=== PATIENT | female | born 2000 | race Caucasian/White ===

== ENCOUNTER 2021-12-26 16:56 | Emergency (ER) | payer OTHER | END 2021-12-26 19:15 | disposition home or self-care (01) | LOC: CSHERS 16:56 | DX: O20.0 Threatened abortion (principal); Z3A.01 Less than 8 weeks gestation of pregnancy ==

== ENCOUNTER 2022-06-29 23:19 | Day surgery (SDC) | payer OTHER ==
[2022-06-29 23:59] VITALS: BMI 53.7
== END 2022-06-30 01:05 | disposition home or self-care (01) ==
LOC: CSHLD/OP 23:19
PROVIDERS: ATTEND Obstetrics & Gynecology
DX: O60.03 Preterm labor without delivery, third trimester (principal); O99.891 Other specified diseases and conditions complicating pregnancy; M79.18 Myalgia, other site; N89.8 Other specified noninflammatory disorders of vagina; Z3A.34 34 weeks gestation of pregnancy
CPT/HCPCS: 99282

== ENCOUNTER 2022-07-18 14:09 | Day surgery (SDC) | payer OTHER ==
[2022-07-18 15:19] LABS: Fetal Membranes Rupture No Membranes Rupture (No Rupture)
== END 2022-07-18 16:20 | disposition home or self-care (01) ==
LOC: CSHLD/OP 14:09
PROVIDERS: ATTEND Obstetrics & Gynecology
DX: O23.593 Infection of other part of genital tract in pregnancy, third trimester (principal); N89.8 Other specified noninflammatory disorders of vagina; Z3A.36 36 weeks gestation of pregnancy; Z79.899 Other long term (current) drug therapy
CPT/HCPCS: 84112; 87480; 87491; 87510; 87591; 87660

== ENCOUNTER 2022-07-28 13:39 | Inpatient (IN) | payer OTHER ==
[~2022-07-28 13:39] MED LIST: Bupivacaine PF 0.5% 30 ML VIAL ONE; Lidocaine 2% PF 5 ML VIAL ONE
[2022-07-28] MEDS ORDERED: hydrALAZINE 20 MG/ML VIAL SLOW IVP PRN ×2 (14:16→15:53)
[2022-07-28] MEDS ORDERED: Lactated Ringer's 1,000 ML IV SCH (14:30)
[2022-07-28] MEDS ORDERED: Misoprostol 200 MCG TAB PR PRN (15:53)
[2022-07-28] MEDS ORDERED: Promethazine HCl 25 MG/ML VIAL IM PRN (15:53)
[2022-07-28] MEDS ORDERED: Docusate 100 MG CAP PO PRN (15:53)
[2022-07-28] MEDS ORDERED: Acetaminophen 500 MG TAB PO PRN (15:53)
[2022-07-28] MEDS ORDERED: Lidocaine 1% (PF) 30 ML VIAL SC PRN (15:53)
[2022-07-28] MEDS ORDERED: Carboprost 250 MCG/ML AMP IM PRN (15:53)
[2022-07-28] MEDS ORDERED: Methylergonovine 0.2 MG/ML VIAL IM PRN (15:53)
[2022-07-28] MEDS ORDERED: Diphenoxylate HCl/Atropine Tablet PO PRN (15:53)
[2022-07-28] MEDS ORDERED: Ondansetron PF 4 MG/2 ML Vial IVP PRN (15:53)
[2022-07-28 15:54] LABS: SARS-CoV-2 NAA Rapid Test Not Detected (NotDetected)
[2022-07-28] MEDS ORDERED: Penicillin G Potassium 5 MILL.UNITS in Sodium Chloride 0.9% 100 ML IVPB SCH (16:00)
[2022-07-28] MEDS ORDERED: NS w/ Oxytocin 30 units 500 ML IV SCH ×2 (16:00)
[2022-07-28 16:56] VITALS: BMI 53.3
[2022-07-28 17:34] LABS: Hemoglobin 8.7 g/dL (12.0-15.5); Mean Corpuscular HGB CONC 31.5 g/dL (32.0-36.0); Mean Corpuscular Hemoglobin 20.8 pg (27.0-33.0); Mean Corpuscular Volume 65.9 fl (81.6-98.3); Mean Platelet Volume 10.9 fl (7.4-10.4); Platelet Count 268 10x3/uL (150-450); RBC Distribution Width 17.1 % (11.5-14.5); Red Blood Cell (RBC) Count 4.19 10x6/uL (3.90-5.03); White Blood Cell (WBC) Count 9.4 10x3/uL (3.5-10.5)
[2022-07-28 18:06] LABS: HBSAg Index 0.15 S/CO (0-0.99); Hep B Surf Ag Non-Reactive S/CO (NonReactive)
[2022-07-28 18:07] LABS: Syphilis Antibody Nonreactive (Nonreactive); Syphilis Antibody Index 0.04 S/CO (<1.00 Non-Reactive)
[2022-07-28] MEDS ORDERED: Penicillin G 2.5 MILL.units 2.5 MILL.UNITS in Premix Bag 1 BAG IVPB SCH (20:00)
[2022-07-28] MEDS: Lactated Ringer's 1,000 ML IV SCH (23:48)
[2022-07-29] MEDS ORDERED: Penicillin G Potassium 5 MILL.UNITS VIAL ONE (04:51)
[2022-07-29] MEDS: Lactated Ringer's 1,000 ML IV SCH (04:54)
[2022-07-29] MEDS: Butorphanol Tartrate 1 MG/ML VIAL SLOW IVP PRN ×2 (15:12→16:28)
[2022-07-29] MEDS ORDERED: Fentanyl 2 mcg/Bup 0.1% Cadd 100 ML ONE (17:53)
[2022-07-29] MEDS ORDERED: Fentanyl 100 MCG/2 ML VIAL ONE (17:59)
[2022-07-29] MEDS ORDERED: Naloxone HCl 0.4 mg/ml Vial IVP PRN ×2 (19:12)
[2022-07-29] MEDS ORDERED: Moisturizing Cream (Eucerin) 113 GM JAR TOP PRN (19:12)
[2022-07-29] MEDS ORDERED: ePHEDrine Sulfate 50 MG/10 ML VIAL SLOW IVP PRN (19:12)
[2022-07-29] MEDS ORDERED: Promethazine HCl 25 MG/ML VIAL IM PRN ×2 (19:12→22:39)
[2022-07-29] MEDS ORDERED: Ondansetron PF 4 MG/2 ML Vial IVP PRN ×2 (19:12→22:39)
[2022-07-29] MEDS ORDERED: diphenhydrAMINE 50 MG/ML VIAL IVP PRN (19:12)
[2022-07-29] MEDS ORDERED: Acetaminophen 325 MG TAB PO PRN (19:12)
[2022-07-29] MEDS ORDERED: Communication Order-Pharmacy FS SCH (19:15)
[2022-07-29] MEDS ORDERED: Fentanyl 2 mcg/Bupivacaine 0.1% Cassette 100 ML EPIDURAL SCH (19:15)
[2022-07-29] MEDS ORDERED: Lactated Ringer's 500 ML IV PRN (19:21)
[2022-07-29] MEDS ORDERED: Carboprost 250 MCG/ML AMP ONE (20:42)
[2022-07-29] MEDS ORDERED: Methylergonovine 0.2 MG/ML VIAL IM PRN (22:39)
[2022-07-29] MEDS ORDERED: Varicella virus, LIVE 0.5 ML VIAL SC ONE (22:39)
[2022-07-29] MEDS ORDERED: NS w/ Oxytocin 30 units 500 ML IV SCH (22:39)
[2022-07-29] MEDS ORDERED: Boostrix 0.5 ML (Tdap) VIAL (>/=7 yrs of age) IM ONE (22:39)
[2022-07-29] MEDS ORDERED: Zolpidem Tartrate 5 MG TAB PO PRN (22:39)
[2022-07-29] MEDS ORDERED: hydrALAZINE 20 MG/ML VIAL SLOW IVP PRN (22:39)
[2022-07-29] MEDS ORDERED: Preparation H Ointment 28 GM TUBE PR PRN (22:39)
[2022-07-29] MEDS ORDERED: Milk Of Magnesia 30 ML UDCUP PO PRN (22:39)
[2022-07-29] MEDS ORDERED: Benzocaine-Menthol 82.5 ML CAN TOP PRN (22:39)
[2022-07-29] MEDS ORDERED: Lanolin Ointment 7 GM TUBE TOP PRN (22:39)
[2022-07-29] MEDS ORDERED: diphenhydrAMINE 25 MG CAP PO PRN (22:39)
[2022-07-29] MEDS ORDERED: Misoprostol 200 MCG TAB VAG PRN (22:39)
[2022-07-29] MEDS ORDERED: Bisacodyl 10 MG SUPP PR PRN (22:39)
[2022-07-29] MEDS ORDERED: Measles/Mumps/Rubella 10 MCG/0.5 ML VIAL SC ONE (22:39)
[2022-07-29] MEDS ORDERED: Ibuprofen 800 MG TAB PO SCH (23:00)
[2022-07-30] MEDS: HYDROcodone/Acetaminophen 5/325 mg Tablet PO PRN ×4 (03:28→17:12)
[2022-07-30] MEDS: Ibuprofen 800 MG TAB PO SCH ×3 (05:10→21:34)
[2022-07-30 05:30] LABS: Hemoglobin 8.8 g/dL (12.0-15.5); Mean Corpuscular HGB CONC 31.2 g/dL (32.0-36.0); Mean Corpuscular Volume 67.1 fl (81.6-98.3); Mean Platelet Volume 10.7 fl (7.4-10.4); Platelet Count 252 10x3/uL (150-450); RBC Distribution Width 17.3 % (11.5-14.5); White Blood Cell (WBC) Count 14.3 10x3/uL (3.5-10.5)
[2022-07-30] MEDS: Prenatal Vitamin 1 TAB PO SCH (08:28)
[2022-07-30] MEDS: Docusate 100 MG CAP PO SCH ×2 (08:28→21:34)
[2022-07-30] MEDS: Ferrous Sulfate 325 MG TAB PO SCH ×2 (08:28→17:12)
[2022-07-31] MEDS: Ibuprofen 800 MG TAB PO SCH (05:33)
[2022-07-31 07:56] VITALS: BP 116/59; TEMP 98.2
[2022-07-31] MEDS: Docusate 100 MG CAP PO SCH (08:52)
[2022-07-31] MEDS: Ferrous Sulfate 325 MG TAB PO SCH (08:52)
[2022-07-31] MEDS: Prenatal Vitamin 1 TAB PO SCH (08:52)
[2022-07-31] MEDS: HYDROcodone/Acetaminophen 5/325 mg Tablet PO PRN (08:52)
== END 2022-07-31 11:00 | disposition home or self-care (01) | DRG 807 ==
LOC: CSHLD/OP 13:39 → CSHLD 16:47 → CSHPP 07-29 23:50
PROVIDERS: ADMIT Obstetrics & Gynecology; ATTEND Obstetrics & Gynecology
PROC: 10E0XZZ Delivery of Products of Conception, External Approach (ICD-10-PCS; principal; 2022-07-29)
DX: O41.03X0 Oligohydramnios, third trimester, not applicable or unspecified (principal); Z37.0 Single live birth; Z3A.38 38 weeks gestation of pregnancy; Z20.822 Contact with and (suspected) exposure to COVID-19; E66.9 Obesity, unspecified; O99.214 Obesity complicating childbirth
CPT/HCPCS: 36415; 51702; 76819; 85027; 86780; 86850; 86900; 86901; 87340; 99285; J0595; J2001; J2540; J2590; J3010; J3490; J7120; S0020

== ENCOUNTER 2023-06-10 08:12 | Emergency (ER) | payer OTHER ==
[2023-06-10 08:55] LABS: Bilirubin Neg (Negative); Blood, Urine 150 (Negative); Clarity Slightly Cloudy (Clear); Glucose, Urine (Dipstick) Normal (Negative); Ketone, Urine Negative (Negative); Leukocyte 100 (Negative); Nitrite Negative (Negative); Protein, Urine (Dipstick) 15 mg/dl (Neg-Trace); Urobilinogen Normal mg/dL (Less than 2)
[2023-06-10 08:57] LABS: Pregnancy Test - Urine (BHCG) Negative (Negative); Pregu Control Background? CLEAR/WHITE (CLR/WHITE); Pregu Control Bar Appear? YES (CONTROL BAR)
[2023-06-10 09:13] LABS: #Eosinphils 0.1 10x3/uL (0.0-0.5); #Monocytes 0.6 10x3/uL (0.0-1.1); #Neutrophils 7.4 10x3/uL (1.5-8.4); %Basophils 0.4 % (0.0-2.0); %Eosinophils 0.7 % (0.0-6.0); %Monocytes 5.9 % (0.0-10.0); %Neutrophils 72.6 % (40.0-75.0); Hematocrit 36.7 % (34.9-44.5); Hemoglobin 11.9 g/dL (12.0-15.5); Mean Corpuscular HGB CONC 32.4 g/dL (32.0-36.0); Mean Corpuscular Hemoglobin 22.5 pg (27.0-33.0); Mean Corpuscular Volume 69.4 fl (81.6-98.3); Mean Platelet Volume 11.2 fl (7.4-10.4); Platelet Count 251 10x3/uL (150-450); RBC Distribution Width 17.3 % (11.5-14.5); Red Blood Cell (RBC) Count 5.29 10x6/uL (3.90-5.03); White Blood Cell (WBC) Count 10.2 10x3/uL (3.5-10.5)
[2023-06-10 09:17] LABS: Bacteria/HPF 4+ HPF (None Seen); CAUTI Indications for Culture Dysuria,urgency,freq; WBC/HPF 21-50 HPF (0-3)
[2023-06-10 09:18] LABS: Mucous/LPF Rare LPF (<2+)
[2023-06-10 09:19] LABS: Urine Culture Reflex Yes Yes
[2023-06-10 09:28] LABS: ALT (SGPT) 10 U/L (8-55); AST (SGOT) 11 U/L (5-34); Albumin 4.1 g/dL (3.5-5.0); Alkaline Phosphatase 82 U/L (40-110); Anion Gap 13 mmol/L (10-20); BUN (Urea Nitrogen) 11 mg/dL (7.0-18.7); Bilirubin, Total 0.3 mg/dL (0.2-1.2); Calc. Creatinine Clearance 0 mL/min (70-130); Carbon Dioxide 20 mmol/L (22-29); Chloride 107 mmol/L (98-107); Estimated GFR 115; Globulin 3.2 g/dL (2.4-3.5); Glucose 101 mg/dL (70-105); Lipase 21 U/L (8-78); Potassium 3.9 mmol/L (3.5-5.1); Protein, Total 7.3 g/dL (6.0-8.3); Sodium 136 mmol/L (136-145)
[2023-06-10 09:43] LABS: Anisocytosis SLIGHT = 6-15 cells (100X) (0-5/hpf); Microcytosis SLIGHT = 6-15 cells (100X) (0-5/hpf); Platelet Adequacy Comment Appears Adequate
== END 2023-06-10 09:50 | disposition home or self-care (01) ==
LOC: CSHERS 08:12
DX: N39.0 Urinary tract infection, site not specified (principal)
CPT/HCPCS: 80053; 81001; 81025; 83690; 85025; 87077; 87086; 87186; 99284